=== PATIENT | female | born 1965 | race Hispanic/Latino ===

== ENCOUNTER 2017-06-21 20:59 | Emergency (ER) | payer MEDICAID ==
[2017-06-21 21:14] VITALS: BP 131/79; PULSE 99; RESP 18; TEMP 98.7; O2SAT 100
--- NOTE | 2017-06-21 21:32 | ED PDOC ---
Arrival/HPI - General Chief Complaint: Altered Mental Status Time Seen by Provider: 06/21/17 21:01 Historian: Patient, EMS - History of Present Illness Narrative History of Present Illness (Text): 06/21/17 21:32 Rafita Harkins is a 52 year old female who presents to the emergency department brought in by EMS for altered mental status tonight. Patient was found wandering the streets disoriented. Patient states she "wants an operation so people will stop talking about her." Limited HPI and ROS due to patient's altered mental status. Symptom Onset: Gradual Symptom Course: Unchanged Activities at Onset: Light Context: Street Past Medical History - Provider Review Nursing Documentation Reviewed: Yes - Psychiatric Hx Substance Use: No Other/Comment: UNOBTAINABLE - Surgical History Other/Comment: UNOBTAINABLE Family/Social History - Physician Review Nursing Documentation Reviewed: Yes Family/Social History: Unknown Family HX Smoking Status: Never Smoked Hx Alcohol Use: No Hx Substance Use: No Allergies/Home Meds Allergies/Adverse Reactions: Allergies Unobtainable Allergy (Verified 06/21/17 21:14) Home Medications: Home Meds Medication Instructions Recorded Confirmed Unobtainable 06/21/17 06/21/17 Review of Systems - Review of Systems Systems not reviewed;Unavailable: Altered Mental Status Psychiatric: Other (+altered mental status) Physical Exam Vital Signs Reviewed: Yes Vital Signs Temp Pulse Resp BP Pulse Ox 06/21/17 21:13 98.7 F 99 H 18 131/79 100 Temperature: Afebrile Blood Pressure: Normal Pulse: Regular Respiratory Rate: Normal Appearance: Positive for: Well-Appearing, Non-Toxic, Comfortable Pain Distress: None Mental Status: Positive for: other (Alert) - Systems Exam Head: Present: Atraumatic, Normocephalic Pupils: Present: PERRL Extroacular Muscles: Present: EOMI Conjunctiva: Present: Normal Mouth: Present: Moist Mucous Membranes Neck: Present: Normal Range of Motion Respiratory/Chest: Present: Clear to Auscultation, Good Air Exchange. No: Respiratory Distress, Accessory Muscle Use Cardiovascular: Present: Regular Rate and Rhythm, Normal S1, S2. No: Murmurs Abdomen: Present: Normal Bowel Sounds. No: Tenderness, Distention, Peritoneal Signs Back: Present: Normal Inspection Upper Extremity: Present: Normal Inspection. No: Cyanosis, Edema Lower Extremity: Present: Normal Inspection. No: Edema Neurological: Present: GCS=15, CN II-XII Intact, Speech Normal Skin: Present: Warm, Dry, Normal Color. No: Rashes Psychiatric: Present: Alert Medical Decision Making ED Course and Treatment: 06/21/17 21:32 Impression: 52 year old female brought in by EMS for altered mental status tonight. Differential Diagnosis included but are not limited to: behavioral problems vs. dementia Plan: -- CT Head w/o contrast -- EKG -- CXR -- Labs, alcohol level -- Urinalysis, urine drug screen -- Reassess and disposition Progress Notes: 06/21/17 21:52 Family/person to notify contacted. Family report patient has a history of behavioral issues and they will come and take pt home. 06/21/17 22:00 Reviewed radiology, CXR shows no acute processes. 06/21/17 22:05 Family present in Emergency department, state they do not want any labwork/ testing performed and will take pt home. Pt in no acute distress and stable for discharge. - Lab Interpretations Lab Results: Lab Results 06/21/17 21:57: POC Glucose (mg/dL) 123 H I have reviewed the lab results: Yes - RAD Interpretation Radiology Orders: 06/21/17 21:33 CHEST PORTABLE [RAD] Stat System Auditor: ED Physician - Scribe Statement The provider has reviewed the documentation as recorded by the Scribe Valeria Britton All medical record entries made by the Scribe were at my direction and personally dictated by me. I have reviewed the chart and agree that the record accurately reflects my personal performance of the history, physical exam, medical decision making, and the department course for this patient. I have also personally directed, reviewed, and agree with the discharge instructions and disposition. Disposition/Present on Arrival - Present on Arrival Any Indicators Present on Arrival: No History of DVT/PE: No History of Uncontrolled Diabetes: No Urinary Catheter: No History of Decub. Ulcer: No History Surgical Site Infection Following: None - Disposition Have Diagnosis and Disposition been Completed?: Yes Diagnosis: Mental and behavioral problem Disposition: HOME/ ROUTINE Disposition Time: 22:07 Condition: GOOD Discharge Instructions (ExitCare): Altered Mental Status (GEN) Referrals: Elías Abdi MD [Primary Care Provider] - Follow up with primary Forms: [facility] ([place]ayan)
--- NOTE | 2017-06-22 11:25 | RAD ---
HISTORY: ams COMPARISON: No prior study available comparison. Okay change right much FINDINGS: LUNGS: Poor inspiration with low lung volumes, crowded bronchovascular markings and minor bibasilar atelectasis. Slight elevation right hemidiaphragm could be due to eventration PLEURA: No significant pleural effusion identified, no pneumothorax apparent. CARDIOVASCULAR: Normal. OSSEOUS STRUCTURES: No significant abnormalities. VISUALIZED UPPER ABDOMEN: Normal. OTHER FINDINGS: None. IMPRESSION: Poor inspiration with low lung volumes, crowded bronchovascular markings and minor bibasilar atelectasis. Slight elevation right hemidiaphragm as above.
== END 2017-06-21 22:07 | disposition home or self-care (01) ==
LOC: ED 20:59
DX: F48.9 Nonpsychotic mental disorder, unspecified (principal)